=== PATIENT | female | born 1940 | race Caucasian/White ===

== ENCOUNTER 2018-12-05 08:09 | Inpatient (IN) | payer MEDICARE ==
[2018-12-02 15:01] VITALS: BMI 40.9
[2018-12-05 09:05] LABS: #Basophils 0.1 thou/uL (0.0-0.2); #Eosinphils 0.1 thou/uL (0.0-0.7); #Monocytes 0.7 thou/uL (0.11-0.59); #Neutrophils 5.8 thou/uL (1.40-6.50); %Basophils 0.6 % (0.0-1.0); %Eosinophils 1.4 % (0.0-10.0); %Lymphocytes 23.5 % (21.0-51.0); %Monocytes 7.6 % (0.0-10.0); Hemoglobin 15.3 g/dL (12.0-16.0); Mean Corpuscular HGB CONC 33.3 g/dL (32.0-36.0); Mean Corpuscular Hemoglobin 30.8 pg (27.0-31.0); Mean Corpuscular Volume 92.4 fL (78.0-98.0); Mean Platelet Volume 7.5 fL (7.4-10.4); Platelet Count 253 thou/uL (130-400); RBC Distribution Width 12.2 % (11.5-14.5); Red Blood Cell (RBC) Count 4.97 mill/uL (4.20-5.40); White Blood Cell (WBC) Count 8.7 thou/uL (4.8-10.8)
[2018-12-05 09:23] LABS: Anion Gap 14 mmol/L (10-20); BUN (Urea Nitrogen) 15 mg/dL (9.8-20.1); Calc. Creatinine Clearance 94 mL/min (70-130); Calcium 10.1 mg/dL (7.8-10.44); Carbon Dioxide 29 mmol/L (23-31); Chloride 97 mmol/L (98-107); Estimated GFR-MDRD 63; Glucose 123 mg/dL (83-110); Potassium 3.6 mmol/L (3.5-5.1); Sodium 136 mmol/L (136-145)
[2018-12-05] MEDS ORDERED: Sodium Chloride 0.9% 10 ML ONE (10:47)
[2018-12-05] MEDS ORDERED: Fentanyl 100 MCG/2 ML VIAL ONE ×3 (11:25→13:32)
[2018-12-05] MEDS ORDERED: Lidocaine 2% Jelly 5 ML TUBE ONE (11:27)
[2018-12-05] MEDS ORDERED: Labetalol HCl 100 MG/20 ML VIAL ONE (12:28)
[2018-12-05] MEDS ORDERED: Ondansetron HCl/PF 4 MG/2 ML Vial IVP PRN ×2 (13:02→13:17)
[2018-12-05] MEDS ORDERED: Promethazine HCl 25 MG/ML VIAL SLOW IVP PRN (13:02)
[2018-12-05] MEDS ORDERED: Promethazine HCl 25 MG/ML VIAL IM PRN ×2 (13:02→13:31)
[2018-12-05] MEDS ORDERED: Non-Formulary Medication 1 EACH PO PRN (13:17)
[2018-12-05] MEDS ORDERED: HYDROmorphone 2 MG/ML VIAL SLOW IVP PRN (13:17)
[2018-12-05] MEDS ORDERED: Promethazine HCl 25 MG/ML VIAL IM/IV PRN (13:17)
[2018-12-05] MEDS ORDERED: traMADol HCl 50 MG TAB PO PRN ×2 (13:31)
[2018-12-05] MEDS ORDERED: HYDROcodone/Acetaminophen 10/325 mg Tablet PO PRN ×2 (13:31)
[2018-12-05] MEDS ORDERED: Mag-Al 1200 mg/1200 mg/30 ML UDCUP PO PRN (13:31)
[2018-12-05] MEDS ORDERED: Milk Of Magnesia 30 ML UDCUP PO PRN (13:31)
[2018-12-05] MEDS ORDERED: diphenhydrAMINE 50 MG/ML VIAL IVP PRN (13:31)
[2018-12-05] MEDS ORDERED: Promethazine HCl 12.5 MG SUPP PR PRN (13:31)
[2018-12-05] MEDS ORDERED: Promethazine 25 MG TAB PO PRN (13:31)
[2018-12-05] MEDS ORDERED: HYDROmorphone 2 MG/ML VIAL ONE (13:31)
[2018-12-05] MEDS ORDERED: Morphine 4 MG/ML VIAL SLOW IVP PRN ×2 (13:31→13:34)
[2018-12-05] MEDS ORDERED: tiZANidine HCl 4 MG TAB PO PRN (13:31)
[2018-12-05] MEDS ORDERED: diphenhydrAMINE 25 MG CAP PO PRN (13:31)
[2018-12-05] MEDS ORDERED: Ondansetron PF 4 MG/2 ML Vial IVP PRN (13:33)
[2018-12-05] MEDS ORDERED: Metoprolol Tartrate 5 MG/5 ML VIAL ONE ×2 (14:54→14:55)
[2018-12-05] MEDS ORDERED: Promethazine HCl 25 MG/ML VIAL ONE (14:57)
[2018-12-05] MEDS ORDERED: PROPOFOL 200 MG/20 ML VIAL ONE (15:00)
[2018-12-05] MEDS ORDERED: Dexamethasone 20 MG/5 ML VIAL ONE (15:00)
[2018-12-05] MEDS ORDERED: Lidocaine 1% PF 5 ML VIAL ONE (15:00)
[2018-12-05] MEDS ORDERED: Ondansetron PF 4 MG/2 ML Vial ONE (15:00)
[2018-12-05] MEDS ORDERED: Rocuronium Bromide 10 MG/ML (10ML VIAL) ONE (15:00)
--- NOTE | 2018-12-05 19:32 | OP ---
DATE OF PROCEDURE: 12/05/2018 QUARTZ MOUNTER: Freddie Salcido PA-C PROCEDURES PERFORMED: Anterior cervical diskectomy, C4 through C7; interbody arthrodesis, C4 through C7; and anterior titanium instrumentation, C4 through C7. DESCRIPTION OF PROCEDURE: The patient was brought to the operating room and intubated. She was positioned supine in modest extension on a gel-filled donut. An incision was made in the right precervical area and dissected medial to the sternocleidomastoid muscle. We identified the anterior cervical spinal, and the level was confirmed by x-ray. The bones were immediately evident to be soft, and it would not hold the distraction pins. After incising the disk spaces, and attempting to remove intervertebral disk, we immediately entered the vertebral bodies in these areas as the bone was so soft that the bony endplate was not preserved. After removal of disk at each level, I aborted further efforts at diskectomy or decompression given the violation of the vertebral bodies. We attempted to minimize this to the degree possible. We did not attempt to place intervertebral biomechanical PEEK devices as I felt they were highly likely to migrate into the vertebral bodies. We did place an anterior plate from C4 through C7 using two 14-mm screws at each level. The wound was then extensively irrigated. MAC hemostasis was secured. The wound was closed in anatomic layers over drain. Job ID: [id number]
[2018-12-05] MEDS: CEFAZOLIN 2 GM in Premix Bag 1 BAG IVPB SCH (20:50)
[2018-12-05] MEDS: Sodium Chloride 0.9% 1,000 ML IV SCH (20:50)
[2018-12-05] MEDS ORDERED: CINNAMON BARK 500 MG PO SCH (21:00)
[2018-12-05] MEDS ORDERED: Loperamide HCl 2 MG CAP PO PRN (21:38)
[2018-12-05] MEDS ORDERED: Senokot S 8.6-50 MG TAB PO PRN (21:38)
[2018-12-05] MEDS ORDERED: Cepastat Lozenges 1 LOZ PO PRN (21:38)
[2018-12-05] MEDS ORDERED: Bisacodyl 10 MG SUPP PR PRN (21:38)
[2018-12-05] MEDS ORDERED: Diabetic Tussin 200 MG/10 ML UDCUP PO PRN (21:38)
[2018-12-05] MEDS ORDERED: Artificial Tears 18 DROP/0.9 ML EA EYE PRN (21:38)
[2018-12-05] MEDS ORDERED: hydrALAZINE 20 MG/ML VIAL SLOW IVP PRN (21:38)
[2018-12-05] MEDS ORDERED: Sodium Chloride 0.65% Nasal 44 ML BOT EA NARE PRN (21:38)
[2018-12-05] MEDS ORDERED: Eucerin (Mineral Oil/Petrolatum,White) 30 gm Jar TOP PRN (21:38)
[2018-12-05] MEDS: cloNIDine 0.1 MG TAB PO SCH (21:39)
[2018-12-05] MEDS: Carvedilol 6.25 MG TAB PO SCH (21:39)
--- NOTE | 2018-12-05 21:41 | PDOC.PN ---
- Subjective Encounter Start Date: 12/05/18 Encounter Start Time: 20:15 -: old records requested/rev Patient seen and examined. No new complaints. No overnight events consulted for medical management pt has surgical site pain - Objective Resuscitation Status - Order Detail: 12/05/18 21:38 Resuscitation Status Routine Resuscitation Status: FULL: Full Resuscitation MAR Reviewed: Yes Vital Signs & Weight: Vital Signs (12 hours) Temp Pulse Resp BP Pulse Ox 12/05/18 19:43 97.6 F 72 16 173/84 H 12/05/18 17:30 97.7 F 57 L 16 177/76 H 95 12/05/18 17:00 64 14 174/82 H 95 12/05/18 16:05 97.8 F 67 12 179/82 H 96 Weight Weight 246 lb I&O: 12/04/18 12/05/18 12/06/18 06:59 06:59 06:59 Output Total 950 Balance -950 Result Diagrams: 12/05/18 08:53 12/05/18 08:53 Phys Exam - Physical Examination Constitutional: NAD HEENT: PERRLA, moist MMs, sclera anicteric Neck: no JVD, supple surgical site with drain + Respiratory: no wheezing, no rales, no rhonchi Cardiovascular: RRR, no significant murmur, no rub Gastrointestinal: soft, non-tender, no distention, positive bowel sounds obesity+ Musculoskeletal: no edema, pulses present Neurological: non-focal, normal sensation, moves all 4 limbs Lymphatic: no nodes Psychiatric: normal affect, A&O x 3 Skin: no rash, normal turgor Dx/Plan (1) S/P cervical discectomy Code(s): Z98.890 - OTHER SPECIFIED POSTPROCEDURAL STATES Status: Acute (2) Hypertension Code(s): I10 - ESSENTIAL (PRIMARY) HYPERTENSION Status: Chronic (3) Morbid obesity with BMI of 40.0-44.9, adult Code(s): E66.01 - MORBID (SEVERE) OBESITY DUE TO EXCESS CALORIES; Z68.41 - BODY MASS INDEX (BMI) 40.0-44.9, ADULT Status: Chronic - Plan cont current plan of care, PT/OT, DVT proph w/SCDs * code status: Full code * home medication reconciled * PT/OT * medically stable * pain control * post operative care as per surgeon * medication reviewed as below * symptomatic treatment. * continue IVF. * PRN antihypertensive meds Review of Systems - Review of Systems ENT: negative: Ear Pain, Ear Discharge, Nose Pain, Nose Discharge, Nose Congestion, Mouth Pain, Mouth Swelling, Throat Pain, Throat Swelling, Other Respiratory: negative: Cough, Dry, Shortness of Breath, Hemoptysis, SOB with Excertion, Pleuritic Pain, Sputum, Wheezing Cardiovascular: negative: chest pain, palpitations, orthopnea, paroxysmal nocturnal dyspnea, edema, light headedness, other Gastrointestinal: negative: Nausea, Vomiting, Abdominal Pain, Diarrhea, Constipation, Melena, Hematochezia, Other Genitourinary: negative: Dysuria, Frequency, Incontinence, Hematuria, Retention , Other Musculoskeletal: Neck Pain. negative: Shoulder Pain, Arm Pain, Back Pain, Hand Pain, Leg Pain, Foot Pain, Other - Medications/Allergies Allergies/Adverse Reactions: Allergies Allergy/AdvReac Type Severity Reaction Status Date / Time amlodipine Allergy Swollen Verified 12/02/18 15:11 Lips latex Allergy Rash Verified 12/02/18 15:11 lisinopril Allergy Anaphylaxis Verified 12/02/18 15:01 Medications: Current Medications Hydrocodone Bitart/Acetaminophen ([place] 10/325) 1 tab PO Q4H PRN PRN Reason: PAIN (1-3) Hydrocodone Bitart/Acetaminophen ([place] 10/325) 2 tab PO Q4H PRN PRN Reason: PAIN (4-6) Al Hydroxide/Mg Hydroxide (Maalox) 30 ml PO Q4H PRN PRN Reason: Heartburn or Indigestion Artificial Tears (Tears Naturale) 2 drop EA EYE PRN PRN PRN Reason: Dry Eyes Bisacodyl (Dulcolax) 10 mg [place] DAILYPRN PRN PRN Reason: Constipation Carvedilol (Coreg) 12.5 mg PO BID [facility] Clonidine (Catapres) 0.1 mg PO BID [facility] Diphenhydramine HCl (Benadryl) 25 mg PO Q6H PRN PRN Reason: Itching Diphenhydramine HCl (Benadryl) 25 mg IVP Q6H PRN PRN Reason: Itching Guaifenesin (Robitussin Sf) 200 mg PO Q4H PRN PRN Reason: Cough Hydralazine HCl (Apresoline) 10 mg SLOW IVP Q4H PRN PRN Reason: SBP > 180 and HR < 70 Hydrochlorothiazide (Hydrochlorothiazide) 25 mg PO DAILY [facility] Sodium Chloride (Normal Saline 0.9%) 1,000 mls @ 75 mls/hr IV .[id number] [facility] Last Admin: 12/05/18 20:50 Dose: 1,000 mls Cefazolin Sodium/Dextrose 2 gm (/ Device) 50 mls @ 100 mls/hr IVPB 0200,1000, 1800 [facility] Stop: 12/06/18 02:29 Last Admin: 12/05/18 20:50 Dose: 50 mls Irbesartan (Avapro) 300 mg PO HS [facility] Loperamide HCl (Imodium) 2 mg PO PRN PRN PRN Reason: Diarrhea/Loose Stools Magnesium Hydroxide (Milk Of Magnesium) 30 ml PO Q12H PRN PRN Reason: Constipation Mineral Oil/White Petrolatum (Eucerin Cream) 0 gm TOP BIDPRN PRN PRN Reason: Dry Skin Morphine Sulfate (Morphine) 4 mg SLOW IVP Q1H PRN PRN Reason: SEVERE BREAKTHROUGH PAIN Morphine Sulfate (Morphine) 2 mg SLOW IVP Q1H PRN PRN Reason: Moderate Breakthrough Pain Ondansetron HCl (Zofran) 4 mg IVP Q8H PRN PRN Reason: Nausea/Vomiting Cinnamon Bark 500 Mg 0 each PO BID [facility] Sour [place]ona Extract (1000 Mg) 0 each PO DAILY [facility] Tumeric Root Extract (500 Mg) 0 each PO DAILY [facility] Potassium Chloride (Klor-Con 10) 10 meq PO DAILY [facility] Promethazine HCl (Phenergan) 12.5 mg IM Q4H PRN PRN Reason: Nausea/Vomiting Promethazine HCl (Phenergan) 12.5 mg PO Q4H PRN PRN Reason: Nausea/Vomiting Promethazine HCl (Phenergan Suppository) 12.5 mg [place] Q4H PRN PRN Reason: Nausea/Vomiting Senna/Docusate Sodium (Senokot S) 2 tab PO BID PRN PRN Reason: Constipation Sodium Chloride (Flush - Normal Saline) 10 ml IVF Q12HR [facility] Sodium Chloride (Flush - Normal Saline) 10 ml IVF PRN PRN PRN Reason: Saline Flush Sodium Chloride ([place] Nasal [place] 0.65%) 0 ml EA NARE QIDPRN PRN PRN Reason: Nasal Congestion Throat Lozenges (Cepastat Lozenges) 1 kody PO Q2H PRN PRN Reason: Sore Throat Tizanidine HCl (Zanaflex) 4 mg PO Q6H PRN PRN Reason: MUSCLE SPASM Tramadol HCl (Ultram) 50 mg PO Q6H PRN PRN Reason: PAIN (1-3) Tramadol HCl (Ultram) 100 mg PO Q6H PRN PRN Reason: PAIN (4-6) Zinc Sulfate (Zinc Sulfate) 220 mg PO DAILY [facility]
[2018-12-06] MEDS: CEFAZOLIN 2 GM in Premix Bag 1 BAG IVPB SCH (02:47)
[2018-12-06] MEDS: Sodium Chloride 0.9% 1,000 ML IV SCH (03:24)
[2018-12-06] MEDS ORDERED: SOUR CHERRY EXTRACT 1000 MG PO SCH (09:00)
[2018-12-06] MEDS ORDERED: Zinc Sulfate 220 MG CAP PO SCH (09:00)
[2018-12-06] MEDS ORDERED: TURMERIC 500 MG PO SCH (09:00)
[2018-12-06] MEDS ORDERED: Hydrochlorothiazide 25 MG TAB PO SCH (09:00)
[2018-12-06] MEDS ORDERED: Potassium Chloride 10 MEQ TAB PO SCH (09:00)
--- NOTE | 2018-12-06 09:20 | DIS ---
DATE OF ADMISSION: 12/05/2018 DATE OF DISCHARGE: 12/06/2018 The patient is a 78-year-old female, status post C4 to C7 ACDF. Following the surgery, she was transitioned to the floor, where her pain has been well-controlled with p.o. medications, she has been tolerating a regular diet, and she has been voiding appropriately. She does have some pain that radiates into the right shoulder, but again she reports this is well controlled with [place]. She has been up ambulating to the bathroom without any difficulty in using a walker. Her incision is dry and intact. She had a CATINA placed intraoperatively and only 20 mL of output overnight. The patient is awake, alert, in no acute distress. She has free active range of motion of all extremities. No focal motor weakness. No reflex asymmetry. CATINA drain has a small amount of dark red blood in the bulb. We will plan to remove CATINA drain and dismiss the patient to home. I have discussed home care precautions. We will follow up the patient in 2 weeks. Job ID: [id number]
[2018-12-06] MEDS: cloNIDine 0.1 MG TAB PO SCH (10:47)
[2018-12-06] MEDS: Carvedilol 6.25 MG TAB PO SCH (10:47)
[2018-12-06 11:30] VITALS: BP 151/72; TEMP 98.1
--- NOTE | 2018-12-06 15:39 | PDOC.EVN ---
Event Note - Event Note Event Note: Pt discharged prior to IM team evaluation.chart reviewed.
--- NOTE | 2018-12-06 22:25 | EKG ---
Test Reason : PREOP Blood Pressure : / mmHG Vent. Rate : 065 BPM Atrial Rate : 065 BPM P-R Int : 200 ms QRS Dur : 150 ms QT Int : 468 ms P-R-T Axes : -27 -43 108 degrees QTc Int : 486 ms Normal sinus rhythm Left axis deviation Left bundle branch block Abnormal ECG No previous ECGs available Confirmed by Brent ALBRIGHT ([id number]) on 12/06/2018 10:25:31 PM Referred By: JANNETTE Confirmed By:Brent ALBRIGHT
== END 2018-12-06 12:00 | disposition home or self-care (01) | DRG 29 ==
LOC: SURG A 08:09 → 3SE 16:49
PROVIDERS: ADMIT Neurological Surgery; ATTEND Neurological Surgery
PROC: 0RB30ZZ Excision of Cervical Vertebral Disc, Open Approach (ICD-10-PCS; principal; 2018-12-05)
DX: M54.12 Radiculopathy, cervical region (principal); Z68.41 Body mass index [BMI] 40.0-44.9, adult; G47.30 Sleep apnea, unspecified; E66.01 Morbid (severe) obesity due to excess calories; I10 Essential (primary) hypertension; Z90.710 Acquired absence of both cervix and uterus; Z90.49 Acquired absence of other specified parts of digestive tract; Z90.89 Acquired absence of other organs
CPT/HCPCS: 36415; 76000; 80048; 85025; 93005; 93010; C1713; J0131; J1170; J2270; J2550; J3010; J3490

== ENCOUNTER 2018-12-20 14:52 | Outpatient (CLI) | payer MEDICARE ==
--- NOTE | 2018-12-20 16:18 | RAD ---
THREE VIEWS CERVICAL SPINE 12/20/18 HISTORY: Status post cervical fusion. Cervical radiculopathy. FINDINGS: Anterior fusion plate with transvertebral body screw from C4 through C7. No perihardware lucency. There is mildly prominent prevertebral soft tissue swelling which may be postoperative. Correlate cli nically. Predental space is normal. Cervical spine vertebral body heights are maintained, without evidence of fracture from C1 through C7 . Limited evaluation of the cervicothoracic junction. In the open mouth projection, lateral masses of C1 and C2 articulate appropriate. Intact odontoid pr ocess. On the AP projection, multilevel facet hypertrophy is noted. IMPRESSION: 1. Uncomplicated cervical fusion changes from C4 through C7. 2. Mildly prominent prevertebral soft tissues which may be postoperative. Correlate clinically. Code T. POS: OFF
== END 2018-12-20 14:53 | disposition home or self-care (01) ==
LOC: TBSIIMAG 14:52
PROVIDERS: ATTEND Neurological Surgery
DX: M54.12 Radiculopathy, cervical region (principal); Z98.1 Arthrodesis status
CPT/HCPCS: 72040

== ENCOUNTER 2019-02-01 12:45 | Outpatient (CLI) | payer MEDICARE ==
--- NOTE | 2019-02-01 13:22 | RAD ---
XR Cerv Sp Ap Lat STANDARD HISTORY: Follow-up neck surgery. COMPARISON: 12/20/2018 exam. FINDINGS: Anterior cervical fusion with placement of plate and screws extending from C4 to C7 is agai n demonstrated. A minimal anterolisthesis of C6 on C7 is noted. The surgical changes appear stable. IMPRESSION: Stable postoperative changes.
== END 2019-02-01 12:46 | disposition home or self-care (01) ==
LOC: TBSIIMAG 12:45
PROVIDERS: ATTEND Neurological Surgery
DX: M50.00 Cervical disc disorder with myelopathy, unspecified cervical region (principal); M47.12 Other spondylosis with myelopathy, cervical region; M48.02 Spinal stenosis, cervical region; Z98.890 Other specified postprocedural states
CPT/HCPCS: 72040